=== PATIENT | female | born 2005 | race Caucasian/White ===

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

== ENCOUNTER 2024-10-18 10:48 | Outpatient (REF) | payer OTHER, SELFPAY | END 2024-10-18 10:49 | disposition home or self-care (01) | LOC: LBN 10:48 | PROVIDERS: Visit Provider Physician Assistant Medical | DX: N89.8 Other specified noninflammatory disorders of vagina (principal) | CPT/HCPCS: 87480; 87510; 87660 ==

== ENCOUNTER 2025-01-22 21:32 | Outpatient (REF) | payer OTHER, SELFPAY ==
[2025-01-22 22:04] LABS: WBC >50 HPF (0-5)
== END 2025-01-22 21:33 | disposition home or self-care (01) ==
LOC: LBN 21:32
PROVIDERS: Visit Provider Physician Assistant Medical
DX: R35.0 Frequency of micturition (principal)
CPT/HCPCS: 87077; 81015; 87086; 87186; 87480; 87510; 87660

== ENCOUNTER 2025-01-27 11:52 | Emergency (ER) | payer OTHER, SELFPAY ==
[2025-01-27 12:02] VITALS: BP 137/81; PULSE 100; RESP 12; TEMP 36.6; O2SAT 98
--- NOTE | 2025-01-27 12:22 | ED.GENADUL_ITS ---
Discharge Plan Disposition Patient Disposition: Home Condition: Stable Discharge Details Clinical Impression: UTI (urinary tract infection), Flank pain Primary Care Provider: Unknown,Unknown ED Provider: Julieth Flores Home Meds and New Rx's Prescriptions: No Action No Known Home Meds Discharge Instructions Instructions: Urinary tract infections in adults, Flank Pain ED Additional Instructions: No evidence of kidney stones, appendicitis, on the CT today, your labs are largely within normal limits and your urine is improved from your previous result. Please continue to take the antibiotics with yogurt or a probiotic as previously prescribed. Please take Tylenol or Ibuprofen with food every 4-6 hours as needed for pain and swelling. Follow up with primary care provider in 3-5 days. Return to ED sooner if any worsening or concerns. Thank you for allowing us to care for you today. Referrals: [facility] [Provider Group] - Return if symptoms worsen Referral Note: Call if needed Primary Care Provider [Outside] - 1 week Referral Note: ER follow up call for appt HPI General Mode of arrival: ambulatory . Date/Time Provider Initiated Documentation: 01/27/25 12:06 . Limitations to Documentation: no limitations . Information obtained by: patient, RN notes reviewed and old records reviewed . HPI Narrative: 19-year-old female presented to ER due to pain, patient was diagnosed with UTI then on Monday at urgent care was placed on ciprofloxacin and Flagyl 500 milligrams twice daily she is continuing to take. She reports that yesterday she began with right flank pain. She does endorse some vomiting on Monday which has since resolved. Denies any fever or chills. No history of abdominal surge hemanth. The right flank pain does radiate to her right lower quadrant. Related Data Home Medications ?Medication ?Instructions ?Recorded ?Confirmed Unknown [No Known Home Meds] 12/23/21 0 01/27/25 Allergies Allergy/AdvReac Type Severity Reaction Status Date / Time No Known Allergies Allergy Verified 01/27/25 12:05 General Stated Complaint: FlankPain GASTON: 3 Review of Systems Constitutional Constitutional: Denies chills and Denies fever(s) Cardiovascular Cardiovascular: Denies chest pain and Denies dyspnea Respiratory Respiratory: Denies dyspnea Gastrointestinal Gastrointestinal: Reports abdominal pain, Reports nausea and Reports vomiting Genitourinary Genitourinary: Reports as per HPI and Reports flank pain Exam Narrative Exam Narrative: Constitutional: Alert and oriented x3. Appears stated age. Obese body habitus. Head: Normocephalic, no trauma. Eyes: Pupils PERRL, Red reflex noted, EOM's intact. Eyelids symmetrical without lesions, discharge, or swelling. Chest: RRR, Normal S1, S2, distal pulses intact. Resp: Lungs clear to auscultation bilaterally, no wheezes, rales, or rhonchi. Abdomen: Soft, non-distended, Normoactive bowel sounds all 4 quads. Tenderness to the right lower quadrant, right CVA tenderness with palpation. Musculoskeletal: Normal gait, Moves all 4 extremities without difficulty. Skin: No suspicious rashes or lesions. Capillary refill less than 2 sec. Neurologic: Cranial nerves II-XII intact. Alert and oriented x 3. Motor: No deficits noted. Hematologic/Lymphatic: No ecchymosis, no lymphadenopathy. Course Vital Signs Vital signs: Vital Signs Temperature 36.6 C 01/27/25 12:02 Pulse 100 H 01/27/25 12:02 Respiratory Rate 12 01/27/25 12:02 Blood Pressure 137/81 01/27/25 12:02 Pulse Oximetry 98 01/27/25 12:02 Temperature 36.6 C 01/27/25 12:02 Temperature Source Oral 01/27/25 12:02 Pulse 100 H 01/27/25 12:02 Respiratory Rate 12 01/27/25 12:02 Blood Pressure 137/81 01/27/25 12:02 Blood Pressure Position Sitting 01/27/25 12:02 Pulse Oximetry 98 01/27/25 12:02 Medical Decision Making 19-year-old female presented to ER due to pain, patient was diagnosed with UTI then on Monday at urgent care was placed on ciprofloxacin and Flagyl 500 mi lligrams twice daily she is continuing to take. She reports that yesterday she began with right flank pain. She does endorse some vomiting on Monday which has since resolved. Denies any fever or chills. No history of abdominal surgeries. The right flank pain does radiate to her right lower quadrant. CBC CMP lipase urinalysis ordered. CT abdomen pelvis. Differential diagnosis to pyelonephritis, kidney stone, PID. No leukocytosis, CBC within normal limits CMP largely within normal limits glucose 116, urinalysis shows trace blood, trace leukocytes no nitrites culture not indicated at this time. CT abdomen pelvis also within normal limits. Will instruct patient to continue taking your previously prescribed antibiotics, and to take Tylenol and ibuprofen and increase oral fluids and follow-up with PCP will give Ex-Lax return for any vomiting fever or concerns. This text was generated using [employer] system, please disregard any oddities of phrase or misspellings. Lab Data Lab results reviewed: Yes I reviewed the patient's lab results. Labs: Laboratory Tests Range/Units 01/27/25 01/27/25 12:50 12:59 WBC (4.4-10.8) 10^3/uL 7.62 RBC (3.93-5.22) 10^6/uL 4.36 Hgb (11.2-15.7) g/dL 12.3 Hct (36.0-46.0) % 37.6 MCV (80-95) fL 86 MCH (27.0-33.0) pg 28.2 MCHC (32.0-36.0) % 32.7 RDW (11.7-14.6) % 13.2 Plt Count (130-400) 10^3/uL 371 MPV (8.0-11.0) fL 8.9 Immature Gran % % 0.3 Neutrophils % % 57.4 Lymphocytes % % 34.8 Monocytes % % 5.2 Eosinophils % % 1.8 Basophils % % 0.5 Nucleated RBC % (0.0-0.3) % 0.0 Absolute Neutrophils (1.2-6.7) 10^3/uL 4.37 Absolute Lymphocytes (1.2-3.4) 10^3/uL 2.65 Absolute Monocytes (0.1-0.8) 10^3/uL 0.40 Absolute Eosinophils (0.0-0.7) 10^3/uL 0.14 Absolute Basophils (0.0-0.2) 10^3/uL 0.04 Sodium (136-145) mmol/L 140 Potassium (3.5-5.1) mmol/L 3.6 Chloride (98-107) mmol/L 104 Carbon Dioxide (21.0-32.0) mmol/L 27.7 Anion Gap (3-11) mmol/L 8.3 BUN (7-18) mg/dL 8 Creatinine (0.55-1.02) mg/dL 0.7 Est GFR (CKD-EPI 2020) (mL/min/1.73m2) 126.90 Glucose (74-106) mg/dL 116 H Calcium (8.5-10.1) mg/dL 9.5 Magnesium (1.8-2.4) mg/dL 2.1 Total Bilirubin (0.2-1.0) mg/dL 0.4 AST (15-37) U/L 25 ALT (14-59) U/L 42 Alkaline Phosphatase (46-116) U/L 85 Total Protein (6.4-8.2) g/dL 8.1 Albumin (3.4-5.0) g/dL 4.0 Lipase (<78) U/L 49 Urine Color (Yellow) Yellow Urine Clarity (Clear) Clear Urine pH (5-8) 5.5 Ur Specific [place] (1.005-1.025) >= 1.030 H Urine Protein (Neg-Trace) mg/dL Trace Urine Ketones (Negative) mg/dL Negative Urine Blood (Negative) Trace-intact H Urine Nitrite (Negative) Negative Urine Bilirubin (Negative) Negative Urine Urobilinogen (Up to 0.2) mg/dL 0.2 Ur Leukocyte Esterase (Negative) Trace H Urine RBC (0-2) HPF 0-2 Urine WBC (0-5) HPF 0-2 Ur Epithelial Cells (Negative) HPF Rare Urine Crystals (Negative) HPF Negative Urine Bacteria (Negative) HPF Few Urine Casts (Negative) LPF Negative Urine Mucus (Negative) Trace Ur Culture Indicated? No Urine Glucose (Negative) mg/dL Negative PFSH All Active Problems (Updated 01/27/25 @ 14:27 by Julieth Flores NP) Flank pain (Acute) UTI (urinary tract infection) (Acute) Scabies (Acute) Social History Smoking risk assessment performed?: No
[2025-01-27 13:06] LABS: Abs Immature Grans 0.02 10^3/uL (0.0-0.06); HCT 37.6 % (36.0-46.0); HGB 12.3 g/dL (11.2-15.7); Immature Grans % 0.3 %; MCH 28.2 pg (27.0-33.0); MCHC 32.7 % (32.0-36.0); MCV 86 fL (80-95); MPV 8.9 fL (8.0-11.0); Platelet Count 371 10^3/uL (130-400); RBC 4.36 10^6/uL (3.93-5.22); RDW 13.2 % (11.7-14.6); RDW-SD 41.6 fL; WBC 7.62 10^3/uL (4.4-10.8)
--- NOTE | 2025-01-27 13:25 | DI.CT_ITS ---
Exam(s) CT ABDOMEN PELVIS WO EXAM: CT ABDOMEN PELVIS WO CLINICAL HISTORY: Right Flank pain. TECHNIQUE: Imaging Protocol: Axial computed tomography images with coronal and sagittal reformatted images were created and reviewed. Oral: / no COMPARISON: No exams were available for comparison FINDINGS: Lung Bases: No acute findings. Liver: Normal density. No suspicious mass. Gallbladder and biliary tract: No radiodense calculus or biliary dilation. Pancreas: Normal density. No abnormal calcifications or inflammatory process. Spleen: Normal. Kidneys: Normal size, contour and axis. No radiodense stones. No obstructive uropathy. No suspicious masses seen. Adrenal glands: No masses seen. Lymph nodes: Within normal limits. Vasculature: Abdominal aorta non-dilated. Soft tissues: Unremarkable. Bladder: Nearly empty. Not well evaluated. No gross wall thickening. Bowel: No obstruction or bowel wall thickening. Normal appearing retrocecal appendix. Normal quantity of fecal material. Peritoneal cavity: No ascites. No focal collection. No mesenteric inflammatory response. Reproductive organs: Unremarkable. Bones: Unremarkable for age. IMPRESSION: No acute abnormality in the abdomen or pelvis. RADIATION DOSE DELIVERED: 1,013.16mGy.cm Total DLP DATA REPOSITORY: All CT scans at this facility are submitted to the National Radiology Data Registry (NRDR) Dose Index Registry (DIR) with the [employer] (A[employer]). RADIATION OPTIMIZATION: All CT scans at this facility use at least one of these dose optimization techniques: automated exposure control; mA and/or kV adjustment per patient size (includes targeted exams where dose is matched to clinical indication); or iterative reconstruction.
[2025-01-27 13:26] LABS: Glucose Negative (Negative)
[2025-01-27 13:35] LABS: C & S Indicated? No; RBC 0-2 HPF (0-2); WBC 0-2 HPF (0-5)
[2025-01-27 13:46] LABS: ALT 42 U/L (14-59); AST 25 U/L (15-37); Albumin 4.0 g/dL (3.4-5.0); Alkaline Phosphatase 85 U/L (46-116); Anion Gap 8.3 mmol/L (3-11); BUN 8 mg/dL (7-18); Bilirubin, Total 0.4 mg/dL (0.2-1.0); CO2 27.7 mmol/L (21.0-32.0); Calcium 9.5 mg/dL (8.5-10.1); Chloride 104 mmol/L (98-107); Estimated GFR 126.90 (mL/min/1.73m2); Glucose 116 mg/dL (74-106); Lipase 49 U/L (<78); Magnesium 2.1 mg/dL (1.8-2.4); Potassium 3.6 mmol/L (3.5-5.1); Sodium 140 mmol/L (136-145); Total Protein 8.1 g/dL (6.4-8.2)
== END 2025-01-27 14:57 | disposition home or self-care (01) ==
PROVIDERS: Emergency Provider Registered Nurse Emergency
DX: N39.0 Urinary tract infection, site not specified (principal)
CPT/HCPCS: 36415; 80053; 81025; 83690; 99284; 74176; 81003; 81015; 83735; 85025